=== PATIENT | female | born 1985 | race Caucasian/White ===

== ENCOUNTER 2021-03-31 06:22 | Observation (INO) ==
[2021-03-31] MEDS ORDERED: Ringers Solution, Lactated 1,000 ML IVC SCH (06:45)
[2021-03-31] MEDS ORDERED: Clindamycin 900 MG/50 ML 900 MG/50 ML IV.SOLN IVPB ONE (06:48)
[2021-03-31] MEDS ORDERED: Famotidine 20 MG TABLET PO ONE (07:00)
[2021-03-31] MEDS ORDERED: Vancomycin 1,000 MG VIAL ONE (07:12)
[2021-03-31] MEDS ORDERED: *HR* FentaNYL (PF) 100 MCG/2 ML VIAL ONE (07:14)
[2021-03-31] MEDS ORDERED: *HR* Midazolam HCl 2 MG/2 ML VIAL ONE (07:14)
[2021-03-31] MEDS ORDERED: *HR* Propofol 200 MG/20 ML VIAL IVP ONE (07:15)
[2021-03-31] MEDS ORDERED: *HR* Remifentanil 2 MG VIAL IVP ONE (07:24)
[2021-03-31] MEDS ORDERED: Ipratropium/Albuterol Neb 3 ML IH ONE (07:33)
[2021-03-31] MEDS ORDERED: Polymyxin B Sulfate 500,000 UNIT, Sodium Chloride IRRigation 1,000 ML IR ONE (07:45)
[2021-03-31] MEDS ORDERED: Ondansetron 4 MG/2 ML VIAL ONE (08:34)
[2021-03-31] MEDS ORDERED: EPHEDrine 50 MG/ML VIAL ONE (09:10)
[2021-03-31] MEDS ORDERED: *HR* HYDROMORPHONE 2 MG/ML VIAL ONE (10:46)
[2021-03-31] MEDS ORDERED: Neostigmine Methylsulfate 3 MG/3 ML SYRINGE ONE (10:55)
[2021-03-31] MEDS ORDERED: Ondansetron 4 MG/2 ML VIAL IVP ONE (12:31)
[2021-03-31] MEDS ORDERED: *HR* HYDROcodone/Acet 5/325 mg TABLET PO PRN (12:51)
[2021-03-31] MEDS ORDERED: *HR* OxyCODONE Immed Rel 5 MG TABLET PO PRN (12:51)
[2021-03-31] MEDS ORDERED: methocarbamoL 750 MG TABLET PO PRN (12:51)
[2021-03-31] MEDS ORDERED: tiZANidine 4 MG TABLET PO PRN (12:51)
[2021-03-31] MEDS ORDERED: Ondansetron 4 MG/2 ML VIAL IVP PRN (12:51)
[2021-03-31] MEDS ORDERED: Naloxone 0.4 MG/ML INJ IVP PRN (12:51)
[2021-03-31] MEDS ORDERED: Acetaminophen 325 MG TABLET PO PRN (12:51)
[2021-03-31] MEDS: *HR* HYDROmorphone 2 MG TABLET PO PRN ×2 (13:44→20:56)
[2021-03-31] MEDS ORDERED: CeFAZolin 2 GM/120 ML BAG IVPB SCH (16:00)
[2021-03-31] MEDS: Clindamycin 600 MG/50 ML 600 MG/50 ML IV.SOLN IVPB SCH ×2 (16:20→23:36)
[2021-03-31] MEDS: QUEtiapine Fumarate 100 MG TABLET PO SCH (20:56)
[2021-03-31] MEDS: Ringers Solution, Lactated 1,000 ML IVC SCH (20:56)
[2021-03-31] MEDS: Gabapentin 300 MG CAPSULE PO SCH (20:57)
[2021-03-31] MEDS ORDERED: QUEtiapine Fumarate 100 MG TABLET PO SCH (21:00)
[2021-04-01] MEDS: *HR* HYDROmorphone 2 MG TABLET PO PRN ×4 (03:24→22:03)
[2021-04-01] MEDS: Gabapentin 300 MG CAPSULE PO SCH ×2 (08:22→16:12)
[2021-04-01] MEDS: QUEtiapine Fumarate 25 MG TABLET PO SCH (09:46)
[2021-04-01] MEDS: Ringers Solution, Lactated 1,000 ML IVC SCH ×2 (16:11→18:02)
[2021-04-01] MEDS: QUEtiapine Fumarate 100 MG TABLET PO SCH (21:37)
[2021-04-02 06:38] VITALS: BP 121/78; PULSE 107; TEMP 99.3; O2SAT 92
[2021-04-02] MEDS: Ringers Solution, Lactated 1,000 ML IVC SCH (07:11)
[2021-04-02] MEDS: *HR* HYDROmorphone 2 MG TABLET PO PRN (07:17)
[2021-04-02] MEDS: QUEtiapine Fumarate 25 MG TABLET PO SCH (08:24)
== END 2021-04-02 13:50 | disposition home or self-care (01) ==
LOC: SDCAOSI 06:22 → 4WAOSI 06:22
PROVIDERS: ADMIT Orthopaedic Surgery Orthopaedic Surgery of the Spine; ATTEND Orthopaedic Surgery Orthopaedic Surgery of the Spine